=== PATIENT | male | born 1965 | race Caucasian/White ===

== ENCOUNTER 2022-08-09 11:51 | Emergency (ER) | payer OTHER, SELFPAY ==
[2022-08-09] VITALS (25 sets, daily range): BP systolic 116–162; BP diastolic 55–84; PULSE 62–79; RESP 13–25; TEMP 36.7; O2SAT 93–97
--- NOTE | ~2022-08-09 | XR_ITS ---
EXAMINATION: XR chest 2V 08/09/2022 13:41 INDICATION: Shortness of breath and fatigue. PROCEDURE: 2 view chest COMPARISON: No prior studies for comparison. FINDINGS: The lungs are clear. The cardiomediastinal silhouette is within normal limits. There are no pleural effusions. There is no pneumothorax suspected. Moderately elevated right diaphragm. IMPRESSION: 1: NO ACUTE CARDIOPULMONARY DISEASE. Reviewed, dictated and finalized at location B.
[2022-08-09 12:53] LABS: Influenza A QL RT-PCR Negative (Negative); Influenza B QL RT-PCR Negative (Negative); SARS-CoV-2 RNA PCR Negative
--- NOTE | 2022-08-09 14:01 | ED.GENADULT ---
HPI - General Adult General Chief complaint: Unspecified Stated complaint: sob, bodyaches Time Seen by Provider: 08/09/22 12:03 History of Present Illness HPI narrative: 56-year-old male presented to the emergency department for evaluation of increased generalized weakness. Patient states on Sunday he was working at home and feels that he may have overexerted himself. Patient states he still did some work on Sunday but still felt or out. Patient reports he has been sleeping more as well. Patient did return to work today and states that he just felt foggy headed. Patient denies any falls or injuries. Patient denies any associated fevers. Patient does report prior history of atherosclerotic disease but denies any prior history of PR. Patient denies any current chest pain. Related Data Allergies Allergy/AdvReac Type Severity Reaction Status Date / Time No Known Allergies Allergy Verified 08/09/22 14:36 Review of Systems Review of Systems: CONSTITUTIONAL: Increased generalized weakness see HPI EYES: Denies visual changes, redness, or discharge. ENT: Denies rhinorrhea, congestion, sore throat, or otalgia. CARDIOVASCULAR: Denies chest pain, palpitations, or edema. RESPIRATORY: Some cough and shortness of breath GASTROINTESTINAL: Denies abdominal pain, nausea, vomiting, or diarrhea. GENITOURINARY: Denies dysuria or hematuria. SKIN: Denies rash or itching. MUSCULOSKELETAL: Denies back pain, joint pain, or myalgia. NEUROLOGIC: Denies headache, numbness, or weakness. Exam Narrative: APPEARANCE: Well appearing, no pain, no distress, well-nourished. HEAD: normocephalic, atraumatic. EYES: PERRLA/EOMI, conjunctivae clear. NOSE: Normal no drainage EARS:TMS clear with good light reflex. THROAT: Pharynx clear, no exudate. NECK: Supple. No adenopathy, no masses. RESPIRATORY: Airway patent, respirations nonlabored. Clear to auscultation bilaterally, no rales, rhonchi, wheezing. CARDIOVASCULAR: Regular rate and rhythm without murmurs rubs or gallops. ABDOMINAL: Soft, nontender, nondistended, normal bowel sounds MUSCULOSKELETAL: Moves all extremities. Strength/ROM intact, No edema, No calf tenderness. NEURO: Alert. Cranial nerves II through XII intact. Grossly intact SKIN: Warm, dry. Normal Color Course Course Emergency Course: Patient is afebrile with no leukocytosis. Patient's CMP is within normal limits other than a mildly elevated glucose. Patient was negative for influenza and COVID. Patient was updated on the results of the work-up and plan for treatment at home. All questions and concerns were addressed. Vital Signs Vital signs: Vital Signs Pulse Oximetry 97 08/09/22 12:06 Temperature 98.1 F 08/09/22 12:08 Pulse Rate 73 08/09/22 15:51 Respiratory Rate 20 08/09/22 15:51 Blood Pressure 150/81 H 08/09/22 15:51 Pulse Oximetry 96 08/09/22 15:51 Oxygen Delivery Room Air 08/09/22 12:08 Medical Decision Making Vital Signs Vital Signs: Vital Signs Pulse Oximetry 97 08/09/22 12:06 Temperature 98.1 F 08/09/22 12:08 Pulse Rate 73 08/09/22 15:51 Respiratory Rate 20 08/09/22 15:51 Blood Pressure 150/81 H 08/09/22 15:51 Pulse Oximetry 96 08/09/22 15:51 Oxygen Delivery Room Air 08/09/22 12:08 Lab Data Result diagrams: 08/09/22 14:33 08/09/22 14:33 Labs: Lab Results 08/09/22 08/09/22 08/09/22 Range/Units 12:13 14:33 14:33 WBC 7.9 (4.5-10.0) K/mm3 RBC 4.99 (4.6-6.20) M/mm3 Hgb 15.4 (14.0-18.0) g/dL Hct 43.4 (42.0-52.0) % MCV 87.0 (80-100) fl MCH 30.9 (26-34) pg MCHC 35.5 (32-36) g/dl RDW 12.5 (11.5-14.5) % Plt Count 255 (150-375) k/mm3 MPV 9.5 (7.4-10.4) fl Immature Gran % (Auto) 0.3 (0-0.5) % Neut % (Auto) 64.9 (45.5-73.1) % Lymph % (Auto) 24.7 (18.3-44.2) % [place] % (Auto) 8.7 H (2.6-8.5) % Eos % (Auto) 0.8 (0-4.4) % Baso % (Auto) 0.6 (0.2-1.2)
[2022-08-09 14:39] LABS: Basophils Absolute Auto 0.1 K/mm3 (0.0-0.1); Basophils Percent Auto 0.6 % (0.2-1.2); Eosinophils Absolute Auto 0.1 K/mm3 (0-0.3); Eosinophils Percent Auto 0.8 % (0-4.4); Hematocrit 43.4 % (42.0-52.0); Hemoglobin 15.4 g/dL (14.0-18.0); Immature Granulocyte Absolute 0.02 K/mm3 (0.00-0.031); Immature Granulocyte Percent A 0.3 % (0-0.5); Lymphocytes Absolute Auto 1.96 K/mm3 (0.9-3.2); Lymphocytes Percent Auto 24.7 % (18.3-44.2); Mean Corpuscular HGB Conc 35.5 g/dl (32-36); Mean Corpuscular Hemoglobin 30.9 pg (26-34); Mean Platelet Volume 9.5 fl (7.4-10.4); Monocytes Absolute Auto 0.7 K/mm3 (0.1-0.6); Monocytes Percent Auto 8.7 % (2.6-8.5); Neutrophils Absolute Auto 5.1 K/mm3 (1.3-6.7); Neutrophils Percent Auto 64.9 % (45.5-73.1); Platelet Count Result 255 k/mm3 (150-375); Red Blood Count 4.99 M/mm3 (4.6-6.20); Red Cell Distribution Width 12.5 % (11.5-14.5); White Blood Count 7.9 K/mm3 (4.5-10.0)
[2022-08-09 14:49] LABS: Alanine Aminotransferase 33 U/L (6-50); Albumin Level 4.6 g/dL (3.5-5.1); Alkaline Phosphatase 51 U/L (38-126); Anion Gap 12 mmol/L (8-16); Aspartate Amino Transferase 26 U/L (17-59); Bilirubin,Total 0.9 mg/dL (0.2-1.3); Blood Urea Nitrogen 14 mg/dL (9-20); Calcium 9.2 mg/dL (8.4-10.2); Carbon Dioxide 29 mmol/L (22-30); Chloride 98 mmol/L (98-107); Estimated CRCL calculation 105 ml/min; Estimated Glomerular Filt Rate > 60; Glucose 193 mg/dL (65-110); Potassium 4.5 mmol/L (3.4-5.0); Sodium 139 mmol/L (137-145)
== END 2022-08-09 15:51 | disposition home or self-care (01) ==
PROVIDERS: Emergency Provider Emergency Medicine; PCP Family Medicine
DX: R53.83 Other fatigue (principal); Z20.822 Contact with and (suspected) exposure to COVID-19
CPT/HCPCS: 36415; 71046; 80053; 85025; 87502; 99283; U0003; U0005